=== PATIENT | female | born 1970 | race Two or more races ===

== ENCOUNTER 2017-12-25 12:03 | Emergency (ER) | payer SELFPAY ==
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
--- NOTE | 2017-12-25 13:08 | RAD ---
INDICATION: Head injury. COMPARISON: There are no prior studies available for comparison. TECHNIQUE: Contiguous axial sections of the brain were obtained from the skull base to the vertex without contrast. FINDINGS: The ventricles, cisterns and sulci are within normal limits. No significant focal abnormality or mass effect is seen. There is no evidence for hemorrhage. No significant focal osseous abnormality is seen. The visualized portion of the paranasal sinuses and mastoid air cells appear clear. IMPRESSION: NO EVIDENCE FOR ACUTE INTRACRANIAL ABNORMALITY.
[2017-12-25 13:25] VITALS: BP 108/58
== END 2017-12-25 13:25 | disposition home or self-care (01) ==
LOC: ED 12:03
DX: S09.8XXA Other specified injuries of head, initial encounter (principal); R51 Headache; V49.40XA Driver injured in collision with unspecified motor vehicles in traffic accident, initial encounter; Y92.9 Unspecified place or not applicable
CPT/HCPCS: 70450; 99282